=== PATIENT | female | born 1995 | race Caucasian/White ===

== ENCOUNTER 2022-06-14 17:22 | Emergency (ER) | payer OTHER, SELFPAY ==
--- NOTE | ~2022-06-14 | US_ITS ---
EXAMINATION: US OBSTETRICAL ULTRASOUND CLINICAL INFORMATION: cramping COMPARISON: None. LMP: 04/23/2022. Gestational age by maternal dates is 7 weeks 3 days.. Estimated date of delivery by maternal dates is 7 weeks 2 days. TECHNIQUE: Transabdominal pelvic ultrasound FINDINGS: There is a single intrauterine gestational sac with visible yolk sac, pole, and cardiac activity. There is no significant subchorionic hemorrhage or hematoma. HR: 147 beats per minute. CRL (crown rump length): 1.09 cm corresponding to a gestation of 7 weeks 2 days. MATERNAL ADNEXA: The right maternal ovary measures 2.58 x 2.2 x 2 cm. The left maternal ovary measures 3.5 x 1.5 x 2 cm. There is no significant maternal adnexal mass. No maternal pelvic ascites. US/US OB <= 14 weeks fetus IMPRESSION: Single live intrauterine with estimated gestational age of 7 weeks 2 days with an estimated date of delivery of 01/29/2023.
[2022-06-14 17:33] VITALS: BP 122/77; PULSE 80; RESP 18; TEMP 37.2; O2SAT 98; BMI 23.0
[2022-06-14 18:11] LABS: MANUAL DIFF FLAG NO
[2022-06-14 18:13] LABS: Basophils Percent Auto 0.3 % (0-2); Eosinophils Percent Auto 0.1 % (0-4); Hematocrit 34.9 % (37.0-47.0); Imm Gran Abs Auto 0.01 X10*3/uL (0.00-0.03); Imm Gran Pct Auto 0.1 % (0.0-0.4); Lymphocytes Absolute Auto 2.1 X10*3/uL (1.2-4.9); Lymphocytes Percent Auto 27.3 % (20-40); Mean Corpuscular HGB Conc 34.4 g/dl (31.0-35.0); Mean Corpuscular Hemoglobin 30.2 pg (27.0-33.0); Mean Corpuscular Volume 87.9 fL (80.0-98.0); Mean Platelet Volume 9.7 fL (9.4-12.3); Monocytes Percent Auto 13.3 % (2-11); Neutrophils Absolute Auto 4.5 x10*3/uL (2.0-8.3); Neutrophils Percent Auto 58.9 % (45-73); Platelet Count 267 X10*3/uL (160-400); Red Blood Count 3.97 X10*6/uL (4.20-5.50); White Blood Count 7.7 X10*3/uL (4.8-10.8)
[2022-06-14 18:15] LABS: Appearance Urine CLOUDY; Color Urine YELLOW; Glucose Urine UA NEG (NEG); Leukocyte Esterase Urine NEG (NEG); Nitrite Urine NEG (NEG); Specific Gravity - Urine 1.015 (1.005-1.025); UACC Culture Trigger NO; Urine Blood 2+ (NEG); Urine Ketones NEG (NEG); Urine Protein NEG (NEG-TRACE)
[2022-06-14 18:16] LABS: UPreg QC Valid YES; Urine Pregnancy POSITIVE (NEGATIVE)
[2022-06-14 18:22] LABS: Amorphous Sediment Urine 3+ /LPF; Bacteria Urine 1+ /LPF; Mucus Urine TRACE /LPF; Squamous Epithelial Cell Urine 1+ /LPF; WBC Urine 0-2 /HPF (0-4)
[2022-06-14 18:26] LABS: Alanine Aminotransferase 16 U/L (0-31); Albumin Level 4.3 g/dL (3.5-5.0); Alkaline Phosphatase 40 U/L (39-117); Anion Gap 11 (12-20); Aspartate Amino Transferase 14 U/L (5-31); Bilirubin Direct 0.3 mg/dL (0.0-0.5); Bilirubin Total 0.8 mg/dL (0.0-1.0); Blood Urea Nitrogen 6 mg/dL (9-16); Calcium 9.1 mg/dL (8.4-10.2); Carbon Dioxide 26 mmol/L (22-29); Chloride 101 mmol/L (96-108); Creatinine Clr Calc Pharmacy 103.9; Estimated Glomerular Filt Rate > 60; Glucose Random 93 mg/dL (60-115); Potassium 4.1 mmol/L (3.3-5.1); Sodium 134 mmol/L (135-145)
[2022-06-14 22:55] VITALS: BP 114/61; PULSE 59; RESP 18; TEMP 37.4; O2SAT 98
--- NOTE | 2022-06-14 23:37 | ED_ITS ---
HPI - Nausea/Vomiting/Diarrhea General Chief complaint: Nausea/Vomiting/Diarrhea Stated complaint: Nausea Vomiting Insomnia Time Seen by Provider: 06/14/22 21:51 History of Present Illness HPI Narrative: 26 year old female, 7 weeks confirmed via ultrasound, presents to the ED with a complaint of nausea, vomiting, poor PO intake and right upper abdominal pain/ epigastric pain x5 days. She states that she's felt generally ill and has had trouble keeping food down, however she was able to eat an applesauce and soup earlier today. She has started to vomit bile and began h aving mild upper right quadrant/ epigastric cramping abdominal pain, prompting her to come to the ED tonight. Her was confirmed two weeks ago via ultrasound at [facility] in [place], [place]. Currently switching further OB care over to [facility]. Patient states that this was unplanned, currently not taking vitamins. Denies complications during her first . Denies fever, chills, hematemesis, diarrhea, constipation, urinary symptoms, back/ flank pain or vaginal bleeding. Denies any abdominal surgeries. Related Data Previous Rx's Medication Instructions Recorded prenat.vits,braden,[id number] 1 tab PO DAILY #30 tabs 06/15/22 pyridoxine (vitamin B6) 25 mg 25 mg PO TID nausea or vomiting 06/15/22 tablet #30 tabs Allergies Allergy/AdvReac Type Severity Reaction Status Date / Time No Known Allergies Allergy Verified 06/14/22 17:32 Review of Systems Review of Systems: Constitutional : No Weight loss, No Fever, No Chills, No Fatigue, No Malaise ENT/Mouth : No sore throat, No Rhinorrhea Eyes: No Eye Pain, No Swelling, No Redness Cardiovascular : No Chest Pain, No SOB, No Dyspnea on Exertion, No Orthopnea, No Edema, No Palpitations Respiratory : No Cough, No Sputum, No Wheezing Gastrointestinal : + Nausea, + Vomiting, No Diarrhea, No Constipation, + abdominal Pain, No Hematochezia, No Melena Genitourinary : No Dysuria, No Urinary Frequency, No Hematuria, Musculoskeletal : No joint pain, No Myalgias, No Joint Swelling Skin : No Skin Lesions, No rash Neuro : No Weakness, No Numbness, No Dizziness, No Headache All other systems reviewed and are negative [facility] Past Medical History Attestation statement: The following information was validated with the patient. Source: old records reviewed and nursing notes reviewed Social History Social History Advance Directives: No Advance Directives Information Provided: No Physical Exam Vital Signs: Vital Signs: Last Vital Signs Temp 99.3 F 06/14/22 22:55 Pulse 59 06/14/22 22:55 Resp 18 06/14/22 22:55 BP 114/61 06/14/22 22:55 Pulse Ox 98 06/14/22 22:55 O2 Del Method 06/14/22 22:55 BMI result Body Mass Index 23.0 vss Appearance: Alert.? Oriented X3.? No acute distress.? Head: Normocephalic, atraumatic, no step-offs or deformities Eyes: Pupils equal, round and reactive to light.? ENT: Pharynx normal.? Neck: Normal inspection.? Neck supple.? CVS: Normal heart rate and rhythm.? Pulses normal.? Respiratory: No respiratory distress.? Breath sounds normal.? Abdomen: Soft and mildly TTP in the right upper/ epigastric region. Active BS throughout. Skin: Skin warm and dry.? Normal skin color.? Normal skin turgor.? Extremities: No lower extremity edema.? No calf ttp. 5/5 strength to bilateral upper and lower extremities Neuro: Oriented X 3.? No motor deficit.? No sensory deficit. CN 2-12 intact Course Reevaluation(s) Reevaluation #1: CBC within normal limits. Chemistry with no acute electrolyte abnormalities requiring intervention. Urine without infection. Urine positive. Upon re-evaluation of patient she is feeling better after fluids, Zofran. No tenderness to palpation of abdomen. US pending Time: 01:37 Reevaluation #2: Ultrasound showing a single live intrauterine with estimated gestational age of 7 weeks, 2 days with estimated delivery date of 01/29/2023. Patient resting comfortably. Time: 01:38 Reevaluation #3: Patient has not had any further episodes of nausea or vomiting after fluids and Zofran. At this time patient will be discharged home with vitamin B6 for nausea and vomiting, will also send vitamins to her pharmacy in will advise he r to follow-up with OBGYN. I advised her to return with new or worsening symptoms. At this time I feel comfortable with discharge home. Time: 01:41 Additional Reevaluation(s): Patient now reports she is feeling back to baseline. Tolerating PO. MDM - Nausea/Vomiting/Diarrhea MDM Narrative Medical decision making narrative: 2129 26 year old female, 7 weeks confirmed via ultrasound, presents to the ED with a complaint of nausea, vomiting, poor PO intake and right upper abdominal pain/ epigastric pain x5 days Physical examination with some tenderness to palpation epigastric region and right upper quadrant. Normoactive bowel sounds. Vital signs stable. Unlikely a threatened , likely a dehydration secondary to nausea and vomiting, nausea and vomiting likely viral. Plan at this time is to obtain basic labs, hCG, urine, urine , liver panel, Ob ultrasound, will give fluids and Zofran for symptomatic relief. Medical Records Attestation: I reviewed the patient's medical records. Lab Data Attestation: I reviewed the patient's lab results. Result diagrams: 06/14/22 18:01 06/14/22 18:01 Labs: Lab Results 06/14/22 06/14/22 06/14/22 Range/Units 18:01 18:01 18:01 WBC 7.7 (4.8-10.8) X10*3/uL RBC 3.97 L (4.20-5.50) X10*6/uL Hgb 12.0 (12.0-16.0) g/dl Hct 34.9 L (37.0-47.0) % MCV 87.9 (80.0-98.0) fL MCH 30.2 (27.0-33.0) pg MCHC 34.4 (31.0-35.0) g/dl RDW 12.0 (11.0-16.0) % Plt Count 267 (160-400) X10*3/uL MPV 9.7 (9.4-12.3) fL Immature Gran % (Auto) 0.1 (0.0-0.4) % Neut % (Auto) 58.9 (45-73) % Lymph % (Auto) 27.3 (20-40) % [place] % (Auto) 13.3 H (2-11) % Eos % (Auto) 0.1 (0-4) % Baso % (Auto) 0.3 (0-2) % Lymph # (Auto) 2.1 (1.2-4.9) X10*3/uL [place] # (Auto) 1.0 (0.1-1.2) X10*3/uL Eos # (Auto) 0.0 (0.0-0.4) X10*3/uL Baso # (Auto) 0.0 (0.0-0.2) X10*3/uL Abs Immat Gran (auto) 0.01 (0.00-0.03) X10*3/uL Absolute Neuts (auto) 4.5 (2.0-8.3) x10*3/uL Absolute Nucleated RBC 0.000 (0.0-0.012) X10*3/uL Nucleated RBC % (auto) 0.0 (0.0-0.2) /100WBC Sodium 134 L (135-145) mmol/L Potassium 4.1 (3.3-5.1) mmol/L Chloride 101 (96-108) mmol/L Carbon Dioxide 26 (22-29) mmol/L Anion Gap 11 L (12-20) BUN 6 L (9-16) mg/dL Creatinine 0.66 (0.5-1.4) mg/dL Estim Creat Clear Calc 103.9 Estimated GFR > 60 Random Glucose 93 (60-115) mg/dL Calcium 9.1 (8.4-10.2) mg/dL Total Bilirubin 0.8 (0.0-1.0) mg/dL Direct Bilirubin 0.3 (0.0-0.5) mg/dL AST 14 (5-31) U/L ALT 16 (0-31) U/L Alkaline Phosphatase 40 (39-117) U/L Total Protein 7.0 (6.5-8.0) g/dL Albumin 4.3 (3.5-5.0) g/dL Beta HCG, Quant 75424 mIU/mL Urine Color YELLOW Urine Appearance CLOUDY Urine pH 7.0 (5.0-8.0) Ur Specific [place] 1.015 (1.005-1.025) Urine Protein NEG (NEG-TRACE) MG/DL Urine Glucose (UA) NEG (NEG) MG/DL Urine Ketones NEG (NEG) MG/DL Urine Blood 2+ H (NEG) Urine Nitrite NEG (NEG) Ur Leukocyte Esterase NEG (NEG) Urine RBC 5-9 H (0) /HPF Urine WBC 0-2 (0-4) /HPF Ur Squamous Epith Cells 1+ /LPF Amorphous Sediment 3+ /LPF Urine Bacteria 1+ /LPF Urine Mucus TRACE /LPF Urine Test (NEGATIVE) 06/14/22 Range/Units 18:01 WBC (4.8-10.8) X10*3/uL RBC (4.20-5.50) X10*6/uL Hgb (12.0-16.0) g/dl Hct (37.0-47.0) % MCV (80.0-98.0) fL MCH (27.0-33.0) pg MCHC (31.0-35.0) g/dl RDW (11.0-16.0) % Plt Count (160-400) X10*3/uL MPV (9.4-12.3) fL Immature Gran % (Auto) (0.0-0.4) % Neut % (Auto) (45-73) % Lymph % (Auto) (20-40) % [place] % (Auto) (2-11) % Eos % (Auto) (0-4) % Baso % (Auto) (0-2) % Lymph # (Auto) (1.2-4.9) X10*3/uL [place] # (Auto) (0.1-1.2) X10*3/uL Eos # (Auto) (0.0-0.4) X10*3/uL Baso # (Auto) (0.0-0.2) X10*3/uL Abs Immat Gran (auto) (0.00-0.03) X10*3/uL Absolute Neuts (auto) (2.0-8.3) x10*3/uL Absolute Nucleated RBC (0.0-0.012) X10*3/uL Nucleated RBC % (auto) (0.0-0.2) /100WBC Sodium (135-145) mmol/L Potassium (3.3-5.1) mmol/L Chloride (96-108) mmol/L Carbon Dioxide (22-29) mmol/L Anion Gap (12-20) BUN (9-16) mg/dL Creatinine (0.5-1.4) mg/dL Estim Creat Clear Calc Estimated GFR Random Glucose (60-115) mg/dL Calcium (8.4-10.2) mg/dL Total Bilirubin (0.0-1.0) mg/dL Direct Bilirubin (0.0-0.5) mg/dL AST (5-31) U/L ALT (0-31) U/L Alkaline Phosphatase (39-117) U/L Total Protein (6.5-8.0) g/dL Albumin (3.5-5.0) g/dL Beta HCG, Quant mIU/mL Urine Color Urine Appearance Urine pH (5.0-8.0) Ur Specific [place] (1.005-1.025) Urine Protein (NEG-TRACE) MG/DL Urine Glucose (UA) (NEG) MG/DL Urine Ketones (NEG) MG/DL Urine Blood (NEG) Urine Nitrite (NEG) Ur Leukocyte Esterase (NEG) Urine RBC (0) /HPF Urine WBC (0-4) /HPF Ur Squamous Epith Cells /LPF Amorphous Sediment /LPF Urine Bacteria /LPF Urine Mucus /LPF Urine Test POSITIVE H (NEGATIVE) Critical Care Time Critical Care Time Critical Care Time: No Discharge Plan Discharge Clinical Impression: Intrauterine , Nausea & vomiting, Epigastric abdominal pain Patient Disposition: Home, Self-Care Additional Instructions: Take your medications as prescribed. If you were prescribed antibiotics today, it is important that you take your medication to their entirety, do not skip any doses, do not finish them early. Follow-up with your primary care provider this week. Return to the emergency department with new or worsening symptoms. Such as fevers, chills, chest pain, shortness of breath, nausea, vomiting, dizziness, headache, vision changes, lethargy In case of emergency call 911 Please take pyridoxine for nausea and vomiting I sent vitamins to her pharmacy please take these daily. Please follow-up with OBGYN tomorrow. Please drink plenty of fluids. FINDINGS: There is a single intrauterine gestational sac with visible yolk sac, pole, and cardiac activity.? There is no significant subchorionic hemorrhage or hematoma. HR:? 147 beats per minute. CRL (crown rump length): 1.09 cm corresponding to a gestation of 7 weeks 2 days. MATERNAL ADNEXA: ? ? The right maternal ovary measures 2.58 x 2.2 x 2 cm. The left maternal ovary measures 3.5 x 1.5 x 2 cm. There is no significant maternal adnexal mass.? No maternal pelvic ascites. US/US OB <= 14 weeks fetus IMPRESSION: ? Single live intrauterine with estimated gestational age of 7 weeks 2 days with an estimated date of delivery of 01/29/2023. Prescriptions: New pyridoxine (vitamin B6) 25 mg tablet 25 mg PO TID Qty: 30 0RF prenat.vits,braden,[id number] Tablet 1 tab PO DAILY Qty: 30 0RF Referrals: Physician,Adrian J [Primary Care Provider] - 2 days Kamlesh Gonzalez MD [Physician] - 1 week Stand Alone Forms: Work/School Release
[2022-06-15] MEDS: ondansetron HCL 4 MG/2 ML VIAL IVPUSH (00:05)
[2022-06-15] MEDS: 0.9 % Sodium Chloride 1,000 ML 999 ML IV (00:05)
== END 2022-06-15 02:14 | disposition home or self-care (01) ==
PROVIDERS: Emergency Provider Student in an Organized Health Care Education/Training Program
DX: O21.9 Vomiting of pregnancy, unspecified (principal); O26.891 Other specified pregnancy related conditions, first trimester; R10.13 Epigastric pain; Z3A.01 Less than 8 weeks gestation of pregnancy
CPT/HCPCS: 36415; 76801; 80053; 81001; 81025; 82248; 84702; 85025; 96374; 99284; J2405

== ENCOUNTER 2022-07-18 20:22 | Emergency (ER) | payer OTHER, SELFPAY ==
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
[2022-07-18 20:30] VITALS: BP 134/76; PULSE 88; RESP 16; TEMP 36.7; O2SAT 98; BMI 22.3
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
--- NOTE | 2022-07-19 01:38 | PC.NURSE ---
Pt. is alert and oriented, sitting in bed in no apparent distress.
[2022-07-19] MEDS: Ibuprofen 600 MG TABLET PO (01:40)
[2022-07-19 02:00] VITALS: BP 124/88; PULSE 63; RESP 17; TEMP 36.4; O2SAT 99
== END 2022-07-19 02:06 | disposition home or self-care (01) ==
PROVIDERS: Emergency Provider Internal Medicine
DX: S93.402A Sprain of unspecified ligament of left ankle, initial encounter (principal); V43.52XA Car driver injured in collision with other type car in traffic accident, initial encounter; Y93.9 Activity, unspecified; Y92.410 Unspecified street and highway as the place of occurrence of the external cause; Y99.9 Unspecified external cause status
CPT/HCPCS: 73600; 99284